=== PATIENT | female | born 1940 | race Hispanic/Latino ===

== ENCOUNTER 2016-09-10 16:26 | Emergency (ER) | payer MEDICARE ==
[2016-09-10 16:46] VITALS: BP 131/72; PULSE 96; RESP 18; TEMP 98.1; O2SAT 96; BMI 18.3
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
[2016-09-10] MEDS ORDERED: TDAP Vaccine 0.5 mL Syr IM ONE (16:59)
--- NOTE | 2016-09-11 10:36 | RAD ---
PROCEDURE: Radiographs of the right tibia and fibula. HISTORY: Trauma COMPARISON: None available. TECHNIQUE: Frontal and lateral views obtained. FINDINGS: BONES: Bone alignment and mineralization are normal. There is no acute fracture or bone destruction. JOINT SPACES: Unremarkable. OTHER FINDINGS: None. IMPRESSION: Normal examination.
== END 2016-09-10 18:00 | disposition home or self-care (01) ==
LOC: ED 16:26
DX: S80.11XA Contusion of right lower leg, initial encounter (principal); W22.8XXA Striking against or struck by other objects, initial encounter; Y93.01 Activity, walking, marching and hiking; Y92.480 Sidewalk as the place of occurrence of the external cause; Z23 Encounter for immunization